=== PATIENT | female | born 1985 | race Caucasian/White ===

== ENCOUNTER 2018-07-30 21:57 | Emergency (ER) | payer MEDICAID ==
[~2018-07-30] VITALS: Ht 152.4 cm; Wt 63.0 kg
[2018-07-30 22:45] VITALS: Ht 152.4 cm; Wt 63.0 kg
[2018-07-31] MEDS ORDERED: HYDROCODONE/APAP (5/325) TAB PO ONE (01:30)
[2018-07-31] MEDS ORDERED: CIPROFLOXACIN HCL OTIC DROP 0.25 ML RIGHT EAR SCH (01:30)
[2018-07-31] MEDS ORDERED: IBUP-1542 PO (01:34)
[2018-07-31] MEDS ORDERED: HYDR-4011 PO (01:38)
[2018-07-31] MEDS ORDERED: CIPR500T4 PO (01:38)
[2018-07-31] MEDS ORDERED: OFLO5DRO7 RIGHT EAR (01:38)
[2018-07-31 02:32] VITALS: BP 128/82; PULSE 67; RESP 16
--- NOTE | 2018-07-31 19:59 | ERD ---
ER Documentation Chief Complaint Chief Complaint R ear infection x 1 month and felt drainage today HPI 32-year-old female was admitted with complaint of otitis externa in the right ear for the past month. States that she has tried several different treatment regimens including Cortisporin but the infection keeps coming back. In addition she has had several different ear lavages. States that she has been having some drainage recently. Denies any fevers, chills, hearing loss, tinnitus mastoid tenderness, or edema. ROS All systems reviewed and are negative except as per history of present illness. Medications Home Meds Active Scripts Ciprofloxacin Hcl* (Ciprofloxacin Hcl*) 500 Mg Tablet, 500 MG PO BID for otitis externa for 5 Days, TAB Prov:HENRY BAZZI 07/31/18 Hydrocodone/Acetaminophen ([place] 5-325 Tablet) 1 Each Tablet, 1 TAB PO Q6H PRN for PAIN, #10 TAB Prov:HENRY BAZZI 07/31/18 Ofloxacin Otic (Ofloxacin Otic) 5 Ml Drops, 10 DROP RIGHT EAR DAILY for otitis e xterna for 7 Days, #1 BOTTLE Prov:HENRY BAZZI 07/31/18 Ibuprofen* (Motrin*) 600 Mg Tab, 600 MG PO Q6 for pain, #30 TAB Prov:HENRY BAZZI 07/31/18 Allergies Allergies: Coded Allergies: No Known Allergy (Unverified , 04/07/14) PMhx/Soc Hx Alcohol Use: No Hx Substance Use: No Hx Tobacco Use: No Smoking Status: Never smoker FmHx Family History: No diabetes, No coronary disease, No other Physical Exam Vitals Vital Signs Date Temp Pulse Resp B/P (MAP) Pulse Ox O2 O2 Flow FiO2 Time Delivery Rate 07/31/18 98.8 67 16 128/82 99 Room Air 02:32 (97) 07/30/18 99.2 65 16 131/86 100 22:45 (101) Physical Exam Right ear canal is const: No acute distress Head: Atraumatic Eyes: Normal Conjunctiva ENT: Normal External Ears, Nose and Mouth. Right ear canal is Edematous with white discharge. TM is intact. Mastoids are nontender and nonerythematous or edematous. Neck: Full range of motion. No meningismus. Resp: Clear to auscultation bilaterally Cardio: Regular rate and rhythm, no murmurs Abd: Soft, non tender, non distended. Normal bowel sounds Skin: No petechiae or rashes Back: No midline or flank tenderness Ext: No cyanosis, or edema Neur: Awake and alert Psych: Normal Mood and Affect Results 24 hrs Laboratory Tests Test 07/31/18 02:23 POC Beta HCG, Qualitative NEGATIVE Current Medications Medications Dose Sig/Moris Start Time Status Last (Trade) Ordered Route PRN Stop Time Admin Dose Reason Admin 1 tab ONCE ONCE 07/31/18 DC 07/31/18 Acetaminophen PO 01:30 07/31/18 01:23 / 01:31 Hydrocodone Bitart ([place] (5/325)) 1 drop BID RIGHT 07/31/18 07/31/18 Ciprofloxacin EAR 01:30 02:01 HCl (Ciprofloxaci n HCl Otic) Procedures/MDM Ear lavage was performed without complication. Patient stated that she felt better after the procedure. After failed antibiotic therapy for otitis externa, up-to-date recommends systemic ciprofloxacin as well as ofloxacin drops. Patient was given prescription for both of these. In addition, patient was given prescription for [place] and ibuprofen for pain control. POC was negative. I have low suspicion for TM rupture, sepsis, mastoiditis, intracranial abscess, or any other emergent condition. Patient discharged with strict ER precautions. Patient advised to follow up with PMD. All questions answered at discharge. Departure Diagnosis: Primary Impression: Otitis externa Otitis externa type: unspecified type Chronicity: chronic Laterality: right Qualified Codes: H60.61 - Unspecified chronic otitis externa, right ear Condition: Stable Patient Instructions: External Ear Infection (Adult) Referrals: [facility] YOU HAVE RECEIVED A MEDICAL SCREENING EXAM AND THE RESULTS INDICATE THAT YOU DO NOT HAVE A CONDITION THAT REQUIRES URGENT TREATMENT IN THE EMERGENCY DEPARTMENT. FURTHER EVALUATION AND TREATMENT OF YOUR CONDITION CAN WAIT UNTIL YOU ARE SEEN IN YOUR DOCTORS OFFICE WITHIN THE NEXT 1-2 DAYS. IT IS YOUR RESPONSIBILITY TO MAKE AN APPOINTMENT FOR FOLOW-UP CARE. IF YOU HAVE A PRIMARY DOCTOR --you should call your primary doctor and schedule an appointment IF YOU DO NOT HAVE A PRIMARY DOCTOR YOU CAN CALL OUR PHYSICIAN REFERRAL HOTLINE AT IF YOU CAN NOT AFFORD TO SEE A PHYSICIAN YOU CAN CHOSE FROM THE FOLLOWING [facility] [address] [facility] [address] [facility]. [facility] [address] [facility] [address] [facility] [address] [facility]. [facility] [address] Additional Instructions: FOLLOW UP WITH YOUR PRIMARY CARE PHYSICIAN TOMORROW.Return to this facility if you are not improving as expected. HENRY BAZZI Jul 31, 2018 19:59
== END 2018-07-31 02:33 | disposition home or self-care (01) ==
LOC: FTE 21:57
DX: H60.61 Unspecified chronic otitis externa, right ear (principal)
CPT/HCPCS: 81025; Z7502; Z7610; 99283